=== PATIENT | female | born 1945 | race Caucasian/White ===

== ENCOUNTER 2017-07-18 11:01 | Day surgery (SDC) | payer MEDICARE, OTHER ==
[~2017-07-18] VITALS: Ht 170.2 cm; Wt 93.9 kg
[~2017-07-18 11:01] MED LIST: ASPIRIN 32325 MG/TAB PO; ASPIRIN 81M81 MG/TA2 PO; CALCIUM 600 PLU1 TAB PO; FIBERCON PO; FOLIC ACID0.4 MG PO; GABAPENTIN600 MG PO; LIPITOR20 MG PO; MULTI VITAMINS1 TAB PO; NEURONTIN300 MG/CAP PO; VITAMIN C500 MG PO; VYTORIN 10 MG-21 TAB PO; VYTORIN PO; XALATAN EYE DROPS OU
[2017-07-18 11:26] VITALS: BP 104/86; PULSE 68; TEMP 98.5
[2017-07-18] MEDS ORDERED: HYDRODIURIL50 MG PO (11:33)
[2017-07-18] MEDS ORDERED: ALTACE 5MG5 MG PO (11:33)
[2017-07-18] MEDS ORDERED: INDERAL 10MG10 MG PO (11:34)
[2017-07-18] MEDS ORDERED: MYSOLINE 5050 MG/TAB PO (11:35)
[2017-07-18] MEDS ORDERED: CALCIUM 600 PLU1 TAB PO (11:37)
[2017-07-18] MEDS ORDERED: BIOTIN5000 MCG PO (11:38)
[2017-07-18 12:54] VITALS: BP 117/65; PULSE 68; TEMP 97.7
[2017-07-18 13:15] VITALS: BP 117/65; PULSE 64
[2017-07-18 13:30] VITALS: BP 121/62; PULSE 56
[2017-07-18 13:45] VITALS: BP 125/63; PULSE 60
[2017-07-18 14:00] VITALS: BP 123/61; PULSE 56
== END 2017-07-18 15:23 | disposition home or self-care (01) ==
LOC: SDCO 11:01
DX: D12.3 Benign neoplasm of transverse colon (principal); K63.89 Other specified diseases of intestine; K57.30 Diverticulosis of large intestine without perforation or abscess without bleeding; E78.00 Pure hypercholesterolemia, unspecified; Z90.710 Acquired absence of both cervix and uterus; Z86.010 Personal history of colon polyps
CPT/HCPCS: OP; J2250; J2405; J2550; J3010; J7030